=== PATIENT | male | born 1945 | race Caucasian/White ===

== ENCOUNTER → 2023-04-03 11:34 | Outpatient (REF) | payer MEDICARE, OTHER, SELFPAY ==
[2023-04-03 12:37] LABS: % Basophils 1.2 % (0-2); % Eosinophils 4.9 % (0-6); % Immature Granulocytes 0.2 % (0-0.5); % Lymphocytes 20.7 % (20.5-51.1); % Monocytes 15.2 % (1.7-9.3); % Neutrophils 57.8 % (42.2-75.2); Absolute Basophils 0.1 10^3/uL (0-0.2); Absolute Eosinophils 0.3 10^3/uL (0-0.7); Absolute Lymphocytes 1.1 10^3/uL (1.2-3.4); Absolute Monocytes 0.8 10^3/uL (0.1-0.6); Hematocrit 42.3 % (39.0-52.0); Hemoglobin 14.2 g/dL (13.0-18.0); Mean Corp Hgb Conc. 33.6 g/dL (33.0-37.0); Mean Corpuscular Hgb 29.8 pg (27.0-31.0); Mean Corpuscular Volume 88.9 fL (80.0-94.0); Mean Platelet Volume 9.9 fL (7.4-10.4); Nucleated Red Blood Cells % 0 % (-); Platelet Count 200 10^3/uL (130-400); Red Blood Cell Count 4.76 10^6/uL (4.70-6.10); Red Cell Dist. Width 13.2 % (11.5-14.5); White Blood Cell Count 5.1 10^3/uL (4.8-10.8)
[2023-04-03 12:54] LABS: ALT (SGPT) 15 U/L (0-50); AST (SGOT) 23 U/L (17-59); Albumin 3.6 g/dl (3.5-5.0); Alkaline Phosphatase 83 U/L (38-126); Blood Urea Nitrogen 18 mg/dl (9-20); Calcium 9.3 mg/dl (8.4-10.2); Carbon Dioxide 28 mmol/L (22-30); Chloride 103 mmol/L (98-107); Glucose 94 mg/dl (70-99); Potassium 4.2 mmol/L (3.5-5.1); Sodium 139 mmol/L (135-145); Total Bilirubin 0.8 mg/dl (0.2-1.3); Total Protein 6.8 g/dl (6.3-8.2); eGFR > 60.00
[2023-04-03 13:08] LABS: Vitamin D, 25-OH*** 34.8 ng/mL (30-80)
[2023-04-03 13:22] LABS: PSA, Total - Diagnostic 0.99 ng/ml (0.0-4.0)
[2023-04-03 13:24] LABS: Glycohemoglobin (HgbA1c) 5.8 % (4.0-5.6)
[2023-04-03 13:46] LABS: Erythrocyte Sed Rate 32 mm/hour (0-20)
[2023-04-04 15:54] LABS: Rheumatoid Agglutinin Less Than 10 IU (<10 IU)
[2023-04-04 23:25] LABS: CCP Antibody IgG/IgA 166 Units (0-19)
== END ==
LOC: OLABPV 11:34
PROVIDERS: ATTENDING PHYSICIAN Internal Medicine Rheumatology; FAMILY PHYSICIAN Internal Medicine
DX: C61 Malignant neoplasm of prostate (principal); E11.65 Type 2 diabetes mellitus with hyperglycemia; E55.9 Vitamin D deficiency, unspecified; E80.1 Porphyria cutanea tarda; M06.9 Rheumatoid arthritis, unspecified; M17.0 Bilateral primary osteoarthritis of knee
CPT/HCPCS: 36415; 80053; 82306; 83036; 84153; 85025; 85652; 86140; 86200; 86430

== ENCOUNTER → 2023-08-06 09:47 | Outpatient (REF) | payer MEDICARE, OTHER, SELFPAY | LOC: RAD 09:47 | PROVIDERS: ATTENDING PHYSICIAN Specialist; FAMILY PHYSICIAN Internal Medicine | DX: Z96.612 Presence of left artificial shoulder joint (principal) | CPT/HCPCS: 73200 ==

== ENCOUNTER → 2023-09-12 08:39 | Outpatient (REF) | payer MEDICARE, OTHER, SELFPAY | LOC: RCS 08:39 | PROVIDERS: ATTENDING PHYSICIAN Internal Medicine | DX: R06.02 Shortness of breath (principal) | CPT/HCPCS: 93017; 93005; 93350 ==

== ENCOUNTER → 2023-12-13 11:36 | Outpatient (REF) | payer MEDICARE, OTHER, SELFPAY ==
[2023-12-13 12:41] LABS: % Basophils 1.1 % (0-2); % Eosinophils 4.6 % (0-6); % Immature Granulocytes 0.2 % (0-0.5); % Monocytes 14.9 % (1.7-9.3); % Neutrophils 60.2 % (42.2-75.2); Absolute Basophils 0.1 10^3/uL (0-0.2); Absolute Eosinophils 0.2 10^3/uL (0-0.7); Absolute Monocytes 0.8 10^3/uL (0.1-0.6); Absolute Neutrophils 3.2 10^3/uL (1.4-6.5); Hematocrit 42.1 % (39.0-52.0); Hemoglobin 14.4 g/dL (13.0-18.0); Mean Corp Hgb Conc. 34.2 g/dL (33.0-37.0); Mean Corpuscular Hgb 30.3 pg (27.0-31.0); Mean Corpuscular Volume 88.6 fL (80.0-94.0); Nucleated Red Blood Cells % 0 % (-); Platelet Count 235 10^3/uL (130-400); Red Blood Cell Count 4.75 10^6/uL (4.70-6.10); Red Cell Dist. Width 12.8 % (11.5-14.5); White Blood Cell Count 5.3 10^3/uL (4.8-10.8)
[2023-12-13 12:53] LABS: ALT (SGPT) 24 U/L (0-50); AST (SGOT) 25 U/L (17-59); Albumin 4.2 g/dl (3.5-5.0); Alkaline Phosphatase 88 U/L (38-126); Blood Urea Nitrogen 19 mg/dl (9-20); Calcium 9.6 mg/dl (8.4-10.2); Carbon Dioxide 26 mmol/L (22-30); Chloride 105 mmol/L (98-107); Glucose 93 mg/dl (70-99); Potassium 4.5 mmol/L (3.5-5.1); Sodium 144 mmol/L (135-145); Total Bilirubin 0.6 mg/dl (0.2-1.3); Total Protein 7.5 g/dl (6.3-8.2); eGFR > 60.00
== END ==
LOC: OLABPV 11:36
PROVIDERS: ATTENDING PHYSICIAN Internal Medicine Hematology & Oncology
DX: D47.2 Monoclonal gammopathy (principal)
CPT/HCPCS: 36415; 80053; 82784; 83521; 84155; 84165; 85025; 86334

== ENCOUNTER → 2024-03-24 10:38 | Outpatient (REF) | payer MEDICARE, OTHER, SELFPAY ==
[2024-03-24 11:41] LABS: % Basophils 1.1 % (0-2); % Eosinophils 6.4 % (0-6); % Immature Granulocytes 0.5 % (0-0.5); % Lymphocytes 21.1 % (20.5-51.1); % Monocytes 15.9 % (1.7-9.3); Absolute Basophils 0.1 10^3/uL (0-0.2); Absolute Eosinophils 0.4 10^3/uL (0-0.7); Absolute Lymphocytes 1.3 10^3/uL (1.2-3.4); Absolute Neutrophils 3.5 10^3/uL (1.4-6.5); Hemoglobin 13.9 g/dL (13.0-18.0); Mean Corp Hgb Conc. 32.3 g/dL (33.0-37.0); Mean Corpuscular Hgb 29.1 pg (27.0-31.0); Mean Platelet Volume 9.8 fL (7.4-10.4); Nucleated Red Blood Cells % 0 % (-); Platelet Count 251 10^3/uL (130-400); Red Blood Cell Count 4.78 10^6/uL (4.70-6.10); Red Cell Dist. Width 13.5 % (11.5-14.5); White Blood Cell Count 6.3 10^3/uL (4.8-10.8)
[2024-03-24 11:50] LABS: ALT (SGPT) 23 U/L (0-50); AST (SGOT) 25 U/L (17-59); Albumin 4.4 g/dl (3.5-5.0); Alkaline Phosphatase 98 U/L (38-126); Blood Urea Nitrogen 20 mg/dl (9-20); Calcium 9.2 mg/dl (8.4-10.2); Carbon Dioxide 25 mmol/L (22-30); Chloride 105 mmol/L (98-107); Glucose 90 mg/dl (70-99); Potassium 4.5 mmol/L (3.5-5.1); Sodium 141 mmol/L (135-145); Total Bilirubin 0.7 mg/dl (0.2-1.3); Total Protein 8.1 g/dl (6.3-8.2); eGFR > 60.00
[2024-03-24 12:00] LABS: Erythrocyte Sed Rate 61 mm/hour (0-20)
[2024-03-24 12:35] LABS: Rheumatoid Agglutinin Less Than 10 IU (<10 IU)
[2024-03-26 00:56] LABS: CCP Antibody IgG/IgA 239 Units (0-19)
[2024-03-26 13:03] LABS: Quantiferon Mitogen minus NIL 3.73 IU/mL; Quantiferon NIL 0.11 IU/mL; Quantiferon TB Gold Plus Negative (Negative)
== END ==
LOC: OLABPV 10:38
PROVIDERS: ATTENDING PHYSICIAN Internal Medicine Rheumatology
DX: C61 Malignant neoplasm of prostate (principal); M06.9 Rheumatoid arthritis, unspecified; M17.0 Bilateral primary osteoarthritis of knee
CPT/HCPCS: 36415; 80053; 85025; 85652; 86140; 86200; 86430; 86480

== ENCOUNTER → 2024-08-26 08:37 | Outpatient (REF) | payer MEDICARE, OTHER, SELFPAY | LOC: RST 08:37 | PROVIDERS: ATTENDING PHYSICIAN Family Medicine | DX: R13.12 Dysphagia, oropharyngeal phase (principal) | CPT/HCPCS: 74230; 92611 ==

== ENCOUNTER → 2024-09-01 10:57 | Outpatient (REF) | payer MEDICARE, OTHER, SELFPAY ==
[2024-09-01 13:07] LABS: Urine Character Clear (Clear)
[2024-09-01 14:07] LABS: ALT (SGPT) 26 U/L (0-50); AST (SGOT) 25 U/L (17-59); Albumin 4.1 g/dl (3.5-5.0); Alkaline Phosphatase 100 U/L (38-126); Blood Urea Nitrogen 18 mg/dl (9-20); Calcium 9.3 mg/dl (8.4-10.2); Carbon Dioxide 24 mmol/L (22-30); Chloride 109 mmol/L (98-107); Glucose 94 mg/dl (70-99); HDL Cholesterol 43 mg/dl; LDL Cholesterol, Calculated 92 mg/dl; Potassium 4.4 mmol/L (3.5-5.1); Sodium 139 mmol/L (135-145); Total Protein 7.7 g/dl (6.3-8.2); Very Low Density Lipoprotein 16 mg/dl (0-30); eGFR > 60.00
[2024-09-01 14:34] LABS: PSA, Total - Screen 1.43 ng/ml (0.0-4.0); TSH 1.67 uIU/ml (0.47-4.68)
== END ==
LOC: OLABPV 10:57
PROVIDERS: ATTENDING PHYSICIAN Internal Medicine
DX: E78.2 Mixed hyperlipidemia (principal); R97.20 Elevated prostate specific antigen [PSA]; I10 Essential (primary) hypertension; Z12.5 Encounter for screening for malignant neoplasm of prostate
CPT/HCPCS: 36415; 80053; 80061; 81003; 84443; G0103

== ENCOUNTER → 2024-09-15 09:30 | Outpatient (REF) | payer MEDICARE, OTHER, SELFPAY ==
[2024-09-15 10:02] LABS: Hematocrit 41.9 % (39.0-52.0); Hemoglobin 13.8 g/dL (13.0-18.0); Mean Corp Hgb Conc. 32.9 g/dL (33.0-37.0); Mean Corpuscular Volume 88.4 fL (80.0-94.0); Nucleated Red Blood Cells % 0 % (-); Platelet Count 233 10^3/uL (130-400); Red Cell Dist. Width 13.2 % (11.5-14.5)
[2024-09-15 10:11] LABS: ALT (SGPT) 26 U/L (0-50); AST (SGOT) 23 U/L (17-59); Albumin 4.1 g/dl (3.5-5.0); Alkaline Phosphatase 98 U/L (38-126); Blood Urea Nitrogen 17 mg/dl (9-20); Calcium 9.2 mg/dl (8.4-10.2); Carbon Dioxide 25 mmol/L (22-30); Chloride 108 mmol/L (98-107); Glucose 95 mg/dl (70-99); Potassium 4.6 mmol/L (3.5-5.1); Sodium 139 mmol/L (135-145); Total Protein 7.5 g/dl (6.3-8.2); eGFR > 60.00
[2024-09-15 10:15] LABS: C-Reactive Protein 46.40 mg/L (0.0-10.00)
[2024-09-17 15:06] LABS: Rheumatoid Agglutinin Less Than 10 IU (<10 IU)
== END ==
LOC: OLABPV 09:30
PROVIDERS: ATTENDING PHYSICIAN Internal Medicine Rheumatology; FAMILY PHYSICIAN Internal Medicine
DX: M06.9 Rheumatoid arthritis, unspecified (principal); Z51.81 Encounter for therapeutic drug level monitoring
CPT/HCPCS: 36415; 80053; 85025; 85652; 86140; 86430; 86480

== ENCOUNTER 2024-09-17 06:19 | Day surgery (SDC) | payer MEDICARE, OTHER, SELFPAY | END 2024-09-17 10:09 | disposition home or self-care (01) | LOC: GI 06:19 | PROVIDERS: ATTENDING PHYSICIAN Internal Medicine | DX: R13.12 Dysphagia, oropharyngeal phase (principal); K44.9 Diaphragmatic hernia without obstruction or gangrene; K22.2 Esophageal obstruction; K31.7 Polyp of stomach and duodenum; K29.70 Gastritis, unspecified, without bleeding; K29.50 Unspecified chronic gastritis without bleeding | CPT/HCPCS: 43248; 43239; 88305; 88342 ==

== ENCOUNTER 2024-10-14 07:05 | Outpatient (RCR) | payer MEDICARE, OTHER, SELFPAY | END 2024-10-14 23:59 | disposition home or self-care (01) | LOC: RST 07:05 | PROVIDERS: ATTENDING PHYSICIAN Internal Medicine | DX: R13.12 Dysphagia, oropharyngeal phase (principal) | CPT/HCPCS: 92526; 92610 ==

== ENCOUNTER 2024-11-11 13:28 | Outpatient (RCR) | payer MEDICARE, OTHER, SELFPAY | END 2024-11-11 23:59 | disposition home or self-care (01) | LOC: RST 13:28 | PROVIDERS: ATTENDING PHYSICIAN Internal Medicine | DX: R13.12 Dysphagia, oropharyngeal phase (principal) | CPT/HCPCS: 92526 ==

== ENCOUNTER 2024-12-02 08:15 | Outpatient (RCR) | payer MEDICARE, OTHER, SELFPAY | END 2024-12-02 12:08 | disposition home or self-care (01) | LOC: RST 08:15 | PROVIDERS: ATTENDING PHYSICIAN Internal Medicine | DX: R13.12 Dysphagia, oropharyngeal phase (principal) | CPT/HCPCS: 92526 ==

== ENCOUNTER → 2024-12-14 13:43 | Outpatient (REF) | payer MEDICARE, OTHER, SELFPAY | LOC: HWRAD 13:43 | PROVIDERS: ATTENDING PHYSICIAN Specialist; FAMILY PHYSICIAN Internal Medicine | DX: Z96.612 Presence of left artificial shoulder joint (principal) | CPT/HCPCS: 73200 ==

== ENCOUNTER → 2024-12-15 11:18 | Outpatient (REF) | payer MEDICARE, OTHER, SELFPAY ==
[2024-12-15 11:50] LABS: Hematocrit 43.3 % (39.0-52.0); Hemoglobin 13.6 g/dL (13.0-18.0); Mean Corp Hgb Conc. 31.4 g/dL (33.0-37.0); Mean Corpuscular Volume 91.0 fL (80.0-94.0); Nucleated Red Blood Cells % 0 % (-); Platelet Count 261 10^3/uL (130-400); Red Cell Dist. Width 13.0 % (11.5-14.5)
[2024-12-15 12:47] LABS: ALT (SGPT) 22 U/L (0-50); AST (SGOT) 21 U/L (17-59); Albumin 4.0 g/dl (3.5-5.0); Alkaline Phosphatase 109 U/L (38-126); Blood Urea Nitrogen 18 mg/dl (9-20); Calcium 9.6 mg/dl (8.4-10.2); Carbon Dioxide 28 mmol/L (22-30); Chloride 104 mmol/L (98-107); Glucose 90 mg/dl (70-99); Potassium 4.6 mmol/L (3.5-5.1); Sodium 138 mmol/L (135-145); Total Protein 7.8 g/dl (6.3-8.2); eGFR > 60.00
[2024-12-15 12:49] LABS: C-Reactive Protein 45.00 mg/L (0.0-10.00)
== END ==
LOC: OLABPV 11:18
PROVIDERS: ATTENDING PHYSICIAN Specialist; REFERRING PHYSICIAN Internal Medicine Hematology & Oncology
DX: D47.2 Monoclonal gammopathy (principal); Z96.612 Presence of left artificial shoulder joint
CPT/HCPCS: 80053; 82784; 83521; 84155; 84165; 85025; 86140; 86334

== ENCOUNTER 2025-01-01 13:23 | Inpatient (IN) | payer MEDICARE, OTHER, SELFPAY ==
[2024-12-29 13:58] VITALS: BMI 26.6
[2024-12-29 14:30] LABS: Hematocrit 41.5 % (39.0-52.0); Hemoglobin 13.5 g/dL (13.0-18.0); Mean Corp Hgb Conc. 32.5 g/dL (33.0-37.0); Mean Corpuscular Volume 89.6 fL (80.0-94.0); Platelet Count 256 10^3/uL (130-400); Red Cell Dist. Width 13.2 % (11.5-14.5)
[2024-12-29 14:54] LABS: ALT (SGPT) 29 U/L (0-50); AST (SGOT) 28 U/L (17-59); Albumin 4.1 g/dl (3.5-5.0); Alkaline Phosphatase 105 U/L (38-126); Blood Urea Nitrogen 15 mg/dl (9-20); Calcium 9.4 mg/dl (8.4-10.2); Carbon Dioxide 30 mmol/L (22-30); Chloride 103 mmol/L (98-107); Estimated Creatinine Clearance 65 ml/min; Glucose 105 mg/dl (70-99); Potassium 4.6 mmol/L (3.5-5.1); Sodium 136 mmol/L (135-145); Total Protein 8.0 g/dl (6.3-8.2); eGFR > 60.00
--- NOTE | 2024-12-29 15:56 | CM ---
CM spoke with patient regarding his surgical plan. CM advised that patient will have to wait for cultures post-operatively to make arrangements for home IV antibiotics. Patient stated he would be willing to learn and his would be available to
assist with IV antibiotic teaching. CM initiate referral to [facility] with preliminary information.
[2024-12-30 09:03] LABS: Glycohemoglobin (HgbA1c) 5.7 % (4.0-5.9)
[2025-01-01] VITALS (9 sets, daily range): BP systolic 95–130; BP diastolic 52–63; BMI 26.6
[2025-01-01] MEDS: NORMOSOL-R/PLASMALYTE-A 1000 IV ×2 (13:56→20:18)
[2025-01-01] MEDS: CELEBREX 200 MG PO (13:58)
[2025-01-01] MEDS: TYLENOL 1000 MG PO (13:58)
--- NOTE | 2025-01-01 15:46 | CON.ID ---
Consultation
-
Date/Time Consultation Requested: 01/01/25 13:04
Date/Time Consultation Performed: 01/01/25 15:46
Requesting Provider: Romain VILLASENOR
Performing Provider: Dr Bernal
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
Chief Complaint / Past History
Chief Complaint
pain and loosening of prosthetic
History of Present Illness
Mr Macario is an 79 year old male with history notable for Rheumatoid arthritis on Simponi or cimzia (discrepancy between [facility] and 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
on synovasure. he initially had L reverse TSA 08/22/21. He reports no fevers, chills or unintentional weight loss. No trauma to the joint or skin. Has never been told he had bacteria in his blood. No injections into the joint. Reports some
degree of pain in the shoulder since the initial surgery however it has been slowly progressing despite physical therapy. He was seen in the orthopedics clinic and found to have loosening and displacement of the glenoid component. He had
arthrocentesis for synovasure with PCR positive for P acnes and iliana species. CRP 22.5, RBC 80,000, Nucleated cell count 45,500, 87% neutrophils, alpha defensin positive.
Since arrival here he has been afebrile, bp stable, a cbc done 3 days ago shows wbc 7.1, hgb 13.5, plt 256, na 136, cr 0.9, a1c 5.7, t bili 0.5, ast 28, alt 29, alk phos 105, 12/14/24 CT shoulder with IV contrast: 'questionable lucency along the
superior glenoid screws for which an element of loosening is possible. Additionally there is a likely small effusion.' He has not yet been started on antibiotics but is receiving cefazolin perioperatively. He is planned for a two stage procedure
with the second stage in 3 months. ID is consulted for assistance with management.
Past History
Additional Past Medical History:
RA
ED
Vertigo
Additional Past Surgical History:
cholecystectomy
bilateral inguinal hernia repair with mesh
left tka
Allergy History:
abatacept (From Orencia) Allergy (Verified 01/01/25 13:36)
MOUTH SORES
codeine Allergy (Verified 01/01/25 13:36)
dizzy, lightheadedness
infliximab (From Remicade) Allergy (Verified 01/01/25 13:36)
Anaphylaxis
methotrexate (Methotrexate) Allergy (Verified 01/01/25 13:36)
'congested, coughing'
Medications Reviewed: Yes
Social History
Tobacco: Non-Smoker
Alcohol: None
Family History
Family History: Not Pertinent
Review of Systems
Vital Signs
Temp Pulse Resp BP Pulse Ox
97.2 F 59 16 130/63 96
01/01/25 13:39 01/01/25 13:39 01/01/25 13:39 01/01/25 13:39 01/01/25 13:39
Physical Exam
Physical Exam
Constitutional: No Acute Distress
Cardiovascular: Regular Rate and S1/S2; Negative Murmur or Rub
Pulmonary: Clear and Symmetric; Negative Wheezes, Rales or Rhonchi
Gastrointestinal: Soft, Non Tender, Non Distended and Normal Bowel Sounds
Musculoskeletal: Other (L shoulder with well approximated surgical scar, no erythema, warmth, swelling or tenderness)
Skin: Warm and Dry; Negative Rash or Jaundice
Lab / Diagnostic Study Results
12/29/24 12:27
12/29/24 12:27
Microbiology Results
Micro:
12/29/24 12:27 MRSA Screen - Final
Nose No Methicillin Resistant Staphylococcus aureus isolated.
Assessment / Plan
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
Immunosuppression
- would obtain 5-6 cultures intraoperatively in order to maximize yield for iliana, iliana will grow on routine cultures
- synovasure results consistent with PJI, PCR with P acnes and iliana
- micafungin for present while awaiting cultures
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
- ceftriaxone 2 gm IV q24 hours - plan for a 6 week course
- agree with vancomycin in the cement
- PICC line saturday
- EKG 12/29/24 Qtc 430
- unclear if he is currently on Simponi or cimzia (discrepancy between [facility] and [facility] charts)
Care Review
Plan reviewed with: Physician (Dr Macedo - bingasure results)
[2025-01-01] MEDS: ROCEPHIN IV (15:59)
[2025-01-01] MEDS: TYLENOL PO (16:00)
[2025-01-01] MEDS: MYCAMINE IV (17:50)
--- NOTE | 2025-01-01 20:17 | PTCARENOTE ---
pt arrived from PACU to 2S @1928 post-op Left Frist Stage Revision Reverse TSA. AAOx3. Vital signs stable. L arm sling applied. Pt has no c/o pain. Bed in lowest position. Call amador within reach. Care ongoing.
[2025-01-01] MEDS: ASPIRIN 325 MG PO (20:19)
[2025-01-01] MEDS: STERILE WATER FOR INJECTION IV (20:19)
[2025-01-01] MEDS: BACTROBAN 2% OINTMENT 1 APPLIC NASAL (20:20)
[2025-01-01] MEDS: DECADRON 4 MG IV (20:21)
[2025-01-01] MEDS: SENOKOT 17.2 MG PO (20:21)
[2025-01-01] MEDS: COLACE 100 MG PO (20:21)
[2025-01-01] MEDS: TYLENOL 650 MG PO (20:21)
[2025-01-01] MEDS: NEURONTIN 300 MG PO (22:23)
[2025-01-01] MEDS: PEPCID 40 MG PO (22:23)
[2025-01-02] MEDS: TYLENOL PO (00:24)
[2025-01-02 03:20] VITALS: BP 97/55
[2025-01-02] MEDS: TYLENOL 650 MG PO ×5 (04:14→20:56)
[2025-01-02 07:30] VITALS: BP 92/52
[2025-01-02] MEDS: PROTONIX 40 MG PO (09:45)
[2025-01-02] MEDS: DECADRON 4 MG IV ×2 (09:46→20:56)
[2025-01-02] MEDS: BACTROBAN 2% OINTMENT 1 APPLIC NASAL ×2 (09:46→20:56)
[2025-01-02] MEDS: ASPIRIN 325 MG PO (09:46)
[2025-01-02] MEDS: SENOKOT 17.2 MG PO ×2 (09:47→20:56)
[2025-01-02] MEDS: COLACE 100 MG PO ×2 (09:47→20:56)
[2025-01-02 10:10] VITALS: BP 96/51; PULSE 64; O2SAT 95
[2025-01-02 11:35] VITALS: BP 112/53
--- NOTE | 2025-01-02 11:35 | W.PN.ORTHO ---
Today's Communication / Plan
-
PT/OT
Sling right upper extremity with nonweightbearing
Aspirin for DVT prophylaxis
Infectious disease input appreciated ceftriaxone/micrafungin treatment noted-PICC line Saturday
Patient to home once medically stable
Assessment
.
Distal Motor Intact: Yes
Dressing:
Clean, dry and intact.
Plan
.
Surgery / Date: 1st stage revsion RTSA 01/01 [facility]
DVT Prophylaxis: Aspirin
Activity:
Out of bed.
PT/OT
Discharge Plan: Home
Subjective
.
.:
Patient resting comfortably.
Vital Signs and Labs
.
Vital Signs and Labs:
Lab Results
12/29/24 12:27
12/29/24 12:27
Temp Pulse Resp BP Pulse Ox
97.9 F 75 16 92/52 97
01/02/25 07:30 01/02/25 07:30 01/02/25 07:30 01/02/25 07:30 01/02/25 07:30
Multiple tissue cultures pending
Non-invasive Hgb result: 12.3
--- NOTE | 2025-01-02 15:00 | W.PN.ID1 ---
Date of Service
Date of Service: January 02, 2025
Today's Communication
continue ceftriaxone and micafungin
Assessment / Plan
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
Immunosuppression
- would obtain 5-6 cultures intraoperatively in order to maximize yield for iliana, iliana will grow on routine cultures
- GPR seen on one of the cultures as expected with P acnes
- synovasure results consistent with PJI, PCR with P acnes and iliana
- cbc and cmp in the am
- micafungin for present while awaiting cultures
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
- ceftriaxone 2 gm IV q24 hours - plan for a 6 week course
- agree with vancomycin in the cement
- PICC line saturday; will not be able to set up home IV antibiotics until saturday at the earliest
- EKG 12/29/24 Qtc 430
- unclear if he is currently on Simponi or cimzia (discrepancy between [facility] and [facility] charts)
Chief Complaint
-: Other (late PJI)
Subjective / Review of Systems
afebrile
bp stable
in good spirits
Vital Signs / Physical Exam
Vital Signs
Vital Signs
Temp Pulse Resp BP Pulse Ox
97.5 F 60 16 112/53 99
01/02/25 11:35 01/02/25 11:35 01/02/25 11:35 01/02/25 11:35 01/02/25 11:35
Physical Exam
Constitutional: No Acute Distress
Cardiovascular: Regular Rate and S1/S2; Negative Murmur or Rub
Pulmonary: Clear and Symmetric; Negative Wheezes or Rales
Gastrointestinal: Soft, Non Tender, Non Distended and Normal Bowel Sounds
Skin: Warm and Dry; Negative Rash or Jaundice
Wound: Other (dressing clean, dry, intact)
Objective Data
Lab Data
Lab Results
12/29/24 12:27
12/29/24 12:27
Estimated Creat Clear 65 ml/min 12/29/24 12:27
Total Bilirubin 0.5 mg/dl (0.2-1.3) 12/29/24 12:27
AST 28 U/L (17-59) 12/29/24 12:
ALT 29 U/L (0-50) 12/29/24 12:27
Alkaline Phosphatase 105 U/L (38-126) 12/29/24 12:27
Most recent labs reviewed.
Micro Results:
01/01/25 Unknown Tissue Culture - Preliminary
Shoulder - Left No Growth After 18-24 Hours
Gram Stain - Preliminary
01/01/25 Unknown Tissue Culture - Preliminary
Shoulder - Left No Growth After 18-24 Hours
Gram Stain - Preliminary
01/01/25 Unknown Tissue Culture - Preliminary
Shoulder - Left No Growth After 18-24 Hours
Gram Stain - Preliminary
01/01/25 Unknown Tissue Culture - Preliminary
Shoulder - Left No Growth After 18-24 Hours
Gram Stain - Preliminary
01/01/25 Unknown Tissue Culture - Preliminary
Shoulder - Left No Growth After 18-24 Hours
Gram Stain - Preliminary
01/01/25 Unknown Anaerobic Culture - Preliminary
Shoulder - Left Culture pending. Anaerobic cultures are examined after 3
days incubation. Additional information to follow.
01/01/25 Unknown Wound Culture - Preliminary
Shoulder - Left No growth
Gram Stain - Preliminary
01/01/25 Unknown Tissue Culture - Preliminary
Shoulder - Left No Growth After 18-24 Hours
Gram Stain - Preliminary
12/29/24 12:27 MRSA Screen - Final
Nose No Methicillin Resistant Staphylococcus aureus isolated.
[2025-01-02 15:40] VITALS: BP 109/57
[2025-01-02] MEDS: MYCAMINE 105 MG IV (17:44)
[2025-01-02] MEDS: STERILE WATER FOR INJECTION 20 ML IV (17:45)
[2025-01-02] MEDS: ROCEPHIN 2000 MG IV (17:45)
[2025-01-02] MEDS: PEPCID 40 MG PO (20:56)
[2025-01-02] MEDS: NEURONTIN 300 MG PO (20:56)
[2025-01-02 23:30] VITALS: BP 121/53
[2025-01-03] MEDS: TYLENOL PO ×2 (01:00→04:32)
[2025-01-03 05:58] LABS: Hematocrit 33.6 % (39.0-52.0); Hemoglobin 10.6 g/dL (13.0-18.0); Mean Corp Hgb Conc. 31.5 g/dL (33.0-37.0); Mean Corpuscular Volume 91.6 fL (80.0-94.0); Nucleated Red Blood Cells % 0 % (-); Platelet Count 202 10^3/uL (130-400); Red Cell Dist. Width 13.4 % (11.5-14.5)
[2025-01-03 06:03] LABS: ALT (SGPT) 36 U/L (0-50); AST (SGOT) 36 U/L (17-59); Albumin 3.3 g/dl (3.5-5.0); Alkaline Phosphatase 102 U/L (38-126); Blood Urea Nitrogen 19 mg/dl (9-20); Calcium 8.7 mg/dl (8.4-10.2); Carbon Dioxide 26 mmol/L (22-30); Chloride 109 mmol/L (98-107); Estimated Creatinine Clearance 65 ml/min; Glucose 113 mg/dl (70-99); Potassium 4.4 mmol/L (3.5-5.1); Sodium 141 mmol/L (135-145); Total Protein 6.5 g/dl (6.3-8.2); eGFR > 60.00
[2025-01-03 07:37] VITALS: BP 117/61
--- NOTE | 2025-01-03 08:26 | W.PN.ORTHO ---
Today's Communication / Plan
-
await pic line placement.
Assessment
.
Distal Motor Intact: Yes
Dressing:
Clean, dry and intact.
Assessment:
S/P First stage revision RSA for infection
Plan
.
Surgery / Date: 1st stage revsion RTSA 01/01 [facility]
Activity:
Out of bed.
PT/OT
Discharge Plan: Home w/ VN (Will need IV abx.)
Subjective
.
.:
Patient resting comfortably. Up and moving in room.
Vital Signs and Labs
.
Vital Signs and Labs:
Lab Results
01/03/25 05:13
01/03/25 05:13
Temp Pulse Resp BP Pulse Ox
97.7 F 57 16 117/61 97
01/03/25 07:37 01/03/25 07:37 01/03/25 07:37 01/03/25 07:37 01/03/25 07:37
Non-invasive Hgb result: 12.4
Physical Exam
-
Dressing intact, neurovasc intact
[2025-01-03] MEDS: COLACE 100 MG PO ×2 (08:34→21:27)
[2025-01-03] MEDS: ASPIRIN 325 MG PO (08:34)
[2025-01-03] MEDS: PROTONIX 40 MG PO (08:34)
[2025-01-03] MEDS: TYLENOL 650 MG PO ×4 (08:34→21:00)
[2025-01-03] MEDS: SENOKOT 17.2 MG PO ×2 (08:34→21:28)
--- NOTE | 2025-01-03 14:36 | W.PN.ID1 ---
Date of Service
Date of Service: January 03, 2025
Today's Communication
continue ceftriaxone and micafungin
Assessment / Plan
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
Immunosuppression
- cultures no growth to date
- GPR seen on one of the cultures as expected with P acnes
- synovasure results consistent with PJI, PCR with P acnes and iliana
- micafungin for present while awaiting cultures
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
- ceftriaxone 2 gm IV q24 hours - plan for a 6 week course
- agree with vancomycin in the cement
- PICC line saturday; will not be able to set up home IV antibiotics until saturday at the earliest
- unclear if he is currently on Simponi or cimzia ([facility]
Chief Complaint
-: Other (late PJI)
Subjective / Review of Systems
afebrile
bp stable
Vital Signs / Physical Exam
Vital Signs
Vital Signs
Temp Pulse Resp BP Pulse Ox
97.7 F 57 16 117/61 97
01/03/25 07:37 01/03/25 07:37 01/03/25 07:37 01/03/25 07:37 01/03/25 07:37
Physical Exam
Constitutional: No Acute Distress
Cardiovascular: Regular Rate and S1/S2; Negative Murmur or Rub
Pulmonary: Clear and Symmetric; Negative Wheezes or Rales
Gastrointestinal: Soft, Non Tender, Non Distended and Normal Bowel Sounds
Skin: Warm and Dry; Negative Rash or Jaundice
Wound: Other (dressing clean, dry, intact, no strikethrough)
Objective Data
Lab Data
Lab Results
01/03/25 05:13
01/03/25 05:13
Estimated Creat Clear 65 ml/min 01/03/25 05:13
Total Bilirubin 0.2 mg/dl (0.2-1.3) 01/03/25 05:13
AST 36 U/L (17-59) 01/03/25 05:13
ALT 36 U/L (0-50) 01/03/25 05:13
Alkaline Phosphatase 102 U/L (38-126) 01/03/25 05:13
Most recent labs reviewed.
Micro Results:
01/01/25 Unknown Tissue Culture - Preliminary
Shoulder - Left No Growth After 48 Hours
Gram Stain - Preliminary
01/01/25 Unknown Tissue Culture - Preliminary
Shoulder - Left No Growth After 48 Hours
Gram Stain - Preliminary
01/01/25 Unknown Tissue Culture - Preliminary
Shoulder - Left No Growth After 48 Hours
Gram Stain - Preliminary
01/01/25 Unknown Tissue Culture - Preliminary
Shoulder - Left No Growth After 48 Hours
Gram Stain - Preliminary
01/01/25 Unknown Tissue Culture - Preliminary
Shoulder - Left No Growth After 48 Hours
Gram Stain - Preliminary
01/01/25 Unknown Tissue Culture - Preliminary
Shoulder - Left No Growth After 48 Hours
Gram Stain - Preliminary
01/01/25 Unknown Wound Culture - Preliminary
Shoulder - Left No growth
Gram Stain - Preliminary
01/01/25 Unknown Anaerobic Culture - Preliminary
Shoulder - Left Culture pending. Anaerobic cultures are examined after 3
days incubation. Additional information to follow.
12/29/24 12:27 MRSA Screen - Final
Nose No Methicillin Resistant Staphylococcus aureus isolated.
[2025-01-03 15:00] VITALS: BP 119/59
[2025-01-03] MEDS: STERILE WATER FOR INJECTION 20 ML IV (18:05)
[2025-01-03] MEDS: ROCEPHIN 2000 MG IV (18:05)
[2025-01-03] MEDS: MYCAMINE 105 MG IV (18:05)
[2025-01-03] MEDS: NEURONTIN 300 MG PO (21:28)
[2025-01-03] MEDS: PEPCID 40 MG PO (21:29)
[2025-01-03 23:13] VITALS: BP 130/63
[2025-01-04] MEDS: TYLENOL PO ×2 (00:42→04:55)
[2025-01-04] MEDS: ASPIRIN 325 MG PO (07:53)
[2025-01-04] MEDS: TYLENOL 650 MG PO ×4 (07:53→19:32)
[2025-01-04] MEDS: PROTONIX 40 MG PO (07:53)
[2025-01-04] MEDS: SENOKOT PO ×2 (07:54→19:34)
[2025-01-04] MEDS: COLACE PO ×2 (07:54→19:34)
[2025-01-04 08:05] VITALS: BP 166/72
--- NOTE | 2025-01-04 09:58 | PN.CDI ---
CDI
- -
CDI:
Physician Documentation Request
Admit Date: 01/01/25 13:23
Dear Doctor Remington,
Please review the following and provide your response in the progress notes.
Clinical Indicators:
- 01/01 Operative report indicates debridement without specificity
- 'Extensive debridement with synovectomy including deep tissues, synovium, fascia, and bone'
Could you provide, in the progress notes further clarification regarding the debridement.
Please specify the type of debridement performed:
1. Excisional Debridement - defined as removal by excision of devitalized tissue, necrosis or slough
2. Non-excisional debridement - defined as removal of devitalized tissue, necrosis or slough by such methods as irrigation, brushing, scrubbing or washing.
If the debridement was excisional, please also include:
1. Type of instrument used (#11 blade, #15 blade etc.)
2. What was excised (necrotic tissue, gangrenous tissue, slough etc.)
For excisional or non-excisional, please also include:
1. Depth of debridement (skin, subcutaneous tissue, fascia, muscle, bone etc)
2. Size and appearance of the wound (L, W, D, color of wound, drainage)
Use of terms such as suspected, likely, concern for, or probable (associated with a specific diagnosis that is being evaluated, monitored, or treated as if it exists) are acceptable and can be coded in the inpatient setting, when documented at the
time of discharge.
Thank you,
Kiley Maldonado RN
CDI Specialist
Please use your independent medical judgment in providing your response.
--- NOTE | 2025-01-04 11:42 | W.PN.ID1 ---
Date of Service
Date of Service: January 04, 2025
Today's Communication
- start fluconazole 400 mg PO qday
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
- ceftriaxone 2 gm IV q24 hours - plan for a 6 week course
- PICC line in place
- follow up in 6-8 weeks
Assessment / Plan
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
Immunosuppression
- cultures no growth to date
- GPR seen on one of the cultures as expected with P acnes
- synovasure results consistent with PJI, PCR with P acnes and iliana
- start fluconazole 400 mg PO qday
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
- ceftriaxone 2 gm IV q24 hours - plan for a 6 week course
- PICC line in place
- follow up in 6-8 weeks
Chief Complaint
-: Other (late PJI)
Subjective / Review of Systems
afebrile
bp stable
tolerating current therapies
Vital Signs / Physical Exam
Vital Signs
Vital Signs
Temp Pulse Resp BP Pulse Ox
98 F 59 16 166/72 98
01/04/25 08:05 01/04/25 08:05 01/04/25 08:05 01/04/25 08:05 01/04/25 08:05
Physical Exam
Constitutional: No Acute Distress
Cardiovascular: Regular Rate and S1/S2; Negative Murmur or Rub
Pulmonary: Clear and Symmetric; Negative Wheezes or Rales
Gastrointestinal: Soft, Non Tender, Non Distended and Normal Bowel Sounds
Skin: Warm and Dry; Negative Rash or Jaundice
Objective Data
Lab Data
Lab Results
01/03/25 05:13
01/03/25 05:13
Estimated Creat Clear 65 ml/min 01/03/25 05:13
Total Bilirubin 0.2 mg/dl (0.2-1.3) 01/03/25 05:13
AST 36 U/L (17-59) 01/03/25 05:13
ALT 36 U/L (0-50) 01/03/25 05:13
Alkaline Phosphatase 102 U/L (38-126) 01/03/25 05:13
Most recent labs reviewed.
Micro Results:
01/01/25 Unknown Tissue Culture - Preliminary
Shoulder - Left No Growth After 48 Hours
Gram Stain - Preliminary
01/01/25 Unknown Tissue Culture - Preliminary
Shoulder - Left No Growth After 48 Hours
Gram Stain - Preliminary
01/01/25 Unknown Tissue Culture - Preliminary
Shoulder - Left No Growth After 48 Hours
Gram Stain - Preliminary
01/01/25 Unknown Tissue Culture - Preliminary
Shoulder - Left No Growth After 48 Hours
Gram Stain - Preliminary
01/01/25 Unknown Tissue Culture - Preliminary
Shoulder - Left No Growth After 48 Hours
Gram Stain - Preliminary
01/01/25 Unknown Tissue Culture - Preliminary
Shoulder - Left No Growth After 48 Hours
Gram Stain - Preliminary
01/01/25 Unknown Wound Culture - Preliminary
Shoulder - Left No growth
Gram Stain - Preliminary
01/01/25 Unknown Anaerobic Culture - Preliminary
Shoulder - Left Culture pending. Anaerobic cultures are examined after 3
days incubation. Additional information to follow.
12/29/24 12:27 MRSA Screen - Final
Nose No Methicillin Resistant Staphylococcus aureus isolated.
--- NOTE | 2025-01-04 12:32 | CM ---
Addendum entered by Errol Sandy 01/04/25 15:24:
[facility] does not do training in the hospital. They will train 1st dose in the home. They will call CM office for following CM on Saturday01/05/25.
Addendum entered by Errol Sandy 01/04/25 14:32:
Patient will need outpatient OT script. Attending notified.
Original Note:
POD #3, L shoulder periprosthetic septic arthritis: Removal L shoulder prosthesis; debridement; placement of spacer. IV/AB. Infectious Disease provided AB script for in home AB until 02/11/25. Script faxed to [facility] and placed in chart.
Discharge POC: Home with [facility]. Referral forwarded and script sent.
[2025-01-04] MEDS: DIFLUCAN 400 MG PO (13:19)
[2025-01-04 15:46] VITALS: BP 171/88
--- NOTE | 2025-01-04 15:46 | PTCARENOTE ---
Pt hypertensive, asymptomatic. J Leyla Amaro aware. Care ongoing.
--- NOTE | 2025-01-04 15:51 | W.PN.ORTHO ---
Today's Communication / Plan
-
Appreciate ID, continue Tx
Dispo per CM, appreciate their efforts with infusion services
PICC placed
Intra-op Cx NGTD, but being held for 14 days (previously Synovasure + consistent with p acnes)
Continue IV Rocephin and po fluconazole per Dr. Bernal
Continue sling to LUE, gentle elbow wrist hand ROM OK. No lifting or WB
Ot Rx left on patient's chart for CM
Dressings to remain 2 weeks
Pain control, ice to shoulder
Outpatient Ortho follow-up in 2 weeks
Will follow while admitted, as patient is on our service
Assessment
.
Distal Motor Intact: Yes
Dressing:
Clean, dry and intact. Aquacel in place with minimal contained strikethrough
Assessment:
POD#3 1st stage Left shoulder revision (infection)
Overall doing/feeling well
DNVI LUE
Plan
.
Surgery / Date: 1st stage revsion RTSA 01/01 [facility]
DVT Prophylaxis: Aspirin
Activity:
Out of bed. Sling LUE
PT/OT
Discharge Plan: Other (Appreciate CM)
Subjective
.
.:
Patient feels great. Sitting bedside
Vital Signs and Labs
.
Vital Signs and Labs:
Lab Results
01/03/25 05:13
01/03/25 05:13
Temp Pulse Resp BP Pulse Ox
98.4 F 59 16 171/88 97
01/04/25 15:46 01/04/25 15:46 01/04/25 15:46 01/04/25 15:46 01/04/25 15:46
Non-invasive Hgb result: 9.5
[2025-01-04] MEDS: ROCEPHIN 2000 MG IV (17:35)
[2025-01-04] MEDS: STERILE WATER FOR INJECTION 20 ML IV (17:35)
[2025-01-04] MEDS: NEURONTIN 300 MG PO (21:14)
[2025-01-04] MEDS: PEPCID 40 MG PO (21:14)
[2025-01-04 23:08] VITALS: BP 143/66
[2025-01-05] MEDS: TYLENOL 650 MG PO ×3 (00:36→12:06)
[2025-01-05] MEDS: TYLENOL PO (04:03)
--- NOTE | 2025-01-05 05:35 | PTCARENOTE ---
pt has DL RUE PICC and on report and noted on VS b/ps were taken on that extremity, RICARDO garzon to DEVAN pt have an x-ray of that site to check for placement , order in place.
--- NOTE | 2025-01-05 05:56 | W.PN.ORTHO ---
Today's Communication / Plan
-
79-year-old male left shoulder periprosthetic infection for stage I revision arthroplasty with antibiotic impregnated spacer.
- Infectious disease following. Current regimen of fluconazole 400 mg p.o. daily for total of approximately 18 weeks. Ceftriaxone 2 g IV daily for 6-week course with PICC line in place. Pending case management for definitive timeline for home
antibiotics with PICC line
-Pain control at this time without controlled substance.
- Continue sling to left upper extremity with gentle elbow wrist and hand range of motion okay. Nonweightbearing.
- Occupational Therapy prescription left on patient's chart for case management.
- Dressing to remain in place for 2 weeks.
Pending discharge antibiotic plan with a PICC line for discharge; once finalized by case management please notify and we will plan for patient discharge today or when recommended for his home antibiotic course
Assessment
.
Distal Motor Intact: Yes
Dressing:
Clean, dry and intact.
Plan
.
Surgery / Date: 1st stage revsion RTSA 01/01 [facility]
Activity:
Out of bed.
PT/OT
Subjective
.
.:
Patient resting comfortably.
Vital Signs and Labs
.
Vital Signs and Labs:
Lab Results
01/03/25 05:13
01/03/25 05:13
Temp Pulse Resp BP Pulse Ox
97.6 F 54 16 143/66 99
01/04/25 23:08 01/04/25 23:08 01/04/25 23:08 01/04/25 23:08 01/04/25 23:08
Non-invasive Hgb result: 11.5
[2025-01-05 07:55] VITALS: BP 159/101
[2025-01-05] MEDS: DIFLUCAN 400 MG PO (08:16)
[2025-01-05] MEDS: PROTONIX 40 MG PO (08:16)
[2025-01-05] MEDS: ASPIRIN 325 MG PO (08:16)
[2025-01-05] MEDS: SENOKOT 17.2 MG PO (08:16)
[2025-01-05] MEDS: COLACE 100 MG PO (08:17)
--- NOTE | 2025-01-05 10:27 | W.PN.UPDATE ---
Update Note
Progress Note Update
An excisional debridement was performed with excision of necrotic tissue including synovial tissue and bone using an 10 blade and bovie.
--- NOTE | 2025-01-05 10:57 | CM ---
Addendum entered by Dianna Plunkett 01/05/25 11:18:
patient spoke to insurance team regarding cost of IV medication & agreeable
Addendum entered by Dianna Plunkett 01/05/25 11:17:
script on chart PT/OT
Addendum entered by Dianna Plunkett 01/05/25 11:01:
FAX #: [phone]
Original Note:
Patient seen at bedside with
[facility] referral in [facility]
spoke with Apolonia from [facility] [phone] she has all documentation & can admit tomorrow - patient will need his dose of IV ceftriaxone prior to discharge today
tt ortho
IMM explained & signed. In chart
PLAN: Home with [facility]
fax #: [phone]
--- NOTE | 2025-01-05 11:04 | W.DCSUMMARY ---
Discharge Summary
Discharge Data
Date of Admission: 01/01/25
Date of Discharge: 01/05/25
Total time spent discharging patient (in min): 45
-
Pending Results: No
Hospital Course
Patient is an 79-year-old male who is several years status post placement of a reverse total shoulder
arthroplasty. He has recently had increased pain and x-ray showed a displaced glenoid component. Aspiration revealed cultures positive for P. acnes and possible Milka. The patient was recommended for two stage shoulder arthroplast revision for
suspected hardware failure secondary to infection. The patient underwent left reverse TSA explantation with debidridement of necrotic tissue, cultures, and implantation of antibiotic impregnated spacer without complication 01 January 2025. The
recovered in the PACU without issues and was transferred to the floor. Infectious disease was consulted with recommendations of a PICC line and fluconazole 400 mg PO qday antifungal therapy x 12 weeks after resection and 6 weeks after prosthetic
replaced, ceftriaxone 2 gm IV q24 hours - plan for a 6 week course and outpatient follow up in 6-8 weeks. Prior to discharge the patients demonstrated independent function of ADLs and able to take all medications and pain medication orally.
Discharge Plan
-
Patient Disposition: Home (Routine Discharge)
Discharge Diagnosis/Procedures: Left shoulder arthroplasty septic arthritis
Condition: Good
Diet: No restrictions
Activity: Other activity
Additional Activity: Sling to operative extremity. May come out when at rest. Elbow, wrist and hand ROM okay. No weight bearing
Driving Restrictions: Not until seen by your Dr
Bathing Restrictions: OK to Shower
Other Services: VN
Wound Care: maintain dressing until 1st postoperative followup
Instructions: Shoulder replacement (DC)
Referrals:
Chris Macedo MD [Active, Orthopedics]
Referral Note: follow-up 2 weeks from DOS for wound exam
Arielle Bernal MD [Active, Infectious Diseases]
Adalid Stanley DO [Family Provider, Internal Medicine]
Additional Discharge Medication Instructions: Oral fluconazole sent to pharmacy through [facility] [place].
Prescriptions:
New
aspirin 325 mg Tablet
325 mg PO DAILY Qty: 14 0RF
fluconazole 200 mg Tablet
400 mg PO DAILY Qty: 90 0RF
ceftriaxone 2 gram Recon Soln
2,000 mg IV Q24H Qty: 25 0RF
Rx Instructions:
No order to be sent- through [facility]
Continued
ibuprofen 800 MG tablet
800 mg PO Q6HPRN PRN (Reason: pain)
pantoprazole 40 mg Tablet,Delayed Release (Dr/Ec)
40 mg PO DAILY
fluticasone propionate 50 mcg/actuation [place],Suspension
1 spray INTRANASAL BID
famotidine 20 MG tablet
40 mg PO HS
acetaminophen [Tylenol] 325 mg Tablet
500 mg PO BID
Cimzia
1 dose IV MONTHLY
acetaminophen 500 mg Tablet
1,000 mg PO Q6H PRN (Reason: pain)
Discontinued
mupirocin 2 % Ointment
1 applic TOPICAL BID
Patient Comments:
started treatment on saturday12/29/24 and completed BID
Discharge Orders:
Discharge Patient (As Directed); Ordered 01/05/25
Ordered By: Enrico Morel
Discharge Date and Time
Print Language: DIVEHI
--- NOTE | 2025-01-05 11:20 | W.PN.ID1 ---
Date of Service
Date of Service: January 05, 2025
Today's Communication
- start fluconazole 400 mg PO qday
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
- ceftriaxone 2 gm IV q24 hours - plan for a 6 week course
- PICC line in place
- follow up in 6-8 weeks
Assessment / Plan
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
Immunosuppression
- cultures no growth to date
- GPR seen on one of the cultures as expected with P acnes
- synovasure results consistent with PJI, PCR with P acnes and iliana
- start fluconazole 400 mg PO qday
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
- ceftriaxone 2 gm IV q24 hours - plan for a 6 week course
- PICC line in place
- follow up in 6-8 weeks
Chief Complaint
-: Other (late PJI)
Subjective / Review of Systems
afebrile
bp stable
tolerating current therapies
PICC in place
Vital Signs / Physical Exam
Vital Signs
Vital Signs
Temp Pulse Resp BP Pulse Ox
97.9 F 61 16 159/101 97
01/05/25 07:55 01/05/25 07:55 01/05/25 07:55 01/05/25 07:55 01/05/25 08:15
Physical Exam
Constitutional: No Acute Distress
Cardiovascular: Regular Rate and S1/S2; Negative Murmur or Rub
Pulmonary: Clear and Symmetric; Negative Wheezes or Rales
Gastrointestinal: Soft, Non Tender, Non Distended and Normal Bowel Sounds
Skin: Warm and Dry; Negative Rash or Jaundice
Lines: PICC
Objective Data
Lab Data
Lab Results
01/03/25 05:13
01/03/25 05:13
Estimated Creat Clear 65 ml/min 01/03/25 05:13
Total Bilirubin 0.2 mg/dl (0.2-1.3) 01/03/25 05:13
AST 36 U/L (17-59) 01/03/25 05:13
ALT 36 U/L (0-50) 01/03/25 05:13
Alkaline Phosphatase 102 U/L (38-126) 01/03/25 05:13
Most recent labs reviewed.
Micro Results:
01/01/25 Unknown Tissue Culture - Preliminary
Shoulder - Left NO GROWTH
Gram Stain - Preliminary
01/01/25 Unknown Tissue Culture - Preliminary
Shoulder - Left NO GROWTH
Gram Stain - Preliminary
01/01/25 Unknown Tissue Culture - Preliminary
Shoulder - Left NO GROWTH
Gram Stain - Preliminary
01/01/25 Unknown Tissue Culture - Preliminary
Shoulder - Left NO GROWTH
Gram Stain - Preliminary
01/01/25 Unknown Tissue Culture - Preliminary
Shoulder - Left NO GROWTH
Gram Stain - Preliminary
01/01/25 Unknown Tissue Culture - Preliminary
Shoulder - Left NO GROWTH
Gram Stain - Preliminary
01/01/25 Unknown Anaerobic Culture - Preliminary
Shoulder - Left Culture pending. Anaerobic cultures are examined after 3
days incubation. Additional information to follow.
01/01/25 Unknown Wound Culture - Preliminary
Shoulder - Left No growth
Gram Stain - Preliminary
12/29/24 12:27 MRSA Screen - Final
Nose No Methicillin Resistant Staphylococcus aureus isolated.
Care Review
Plan reviewed with: Physician (Adriel SIMON - [place], fluconazole)
[2025-01-05 11:45] VITALS: BP 184/99
[2025-01-05] MEDS: ROCEPHIN 2000 MG IV (12:06)
[2025-01-05] MEDS: STERILE WATER FOR INJECTION 20 ML IV (12:06)
== END 2025-01-05 13:03 | disposition home or self-care (01) | DRG 512 ==
LOC: 2 SOUTH 13:23
PROVIDERS: ADMITTING PHYSICIAN Specialist; CONSULT PHYSICIAN Student in an Organized Health Care Education/Training Program; FAMILY PHYSICIAN Internal Medicine
PROC: 0RPK0JZ Removal of Synthetic Substitute from Left Shoulder Joint, Open Approach (ICD-10-PCS; 2025-01-01)
PROC: 0RBK0ZZ Excision of Left Shoulder Joint, Open Approach (ICD-10-PCS; 2025-01-01)
DX: T84.59XA Infection and inflammatory reaction due to other internal joint prosthesis, initial encounter (principal); Z96.612 Presence of left artificial shoulder joint; Y79.2 Prosthetic and other implants, materials and accessory orthopedic devices associated with adverse incidents; M06.9 Rheumatoid arthritis, unspecified
CPT/HCPCS: 36415; 71045; 73020; 80053; 83036; 85025; 85027; 86850; 86900; 86901; 87070; 87075; 87176; 87205; 93005; 97110; 97166; 97535; C1713; C1776